=== PATIENT | male | born 1995 ===

== ENCOUNTER 2020-08-05 20:37 | Emergency (ER) | payer SELFPAY ==
[2020-08-05] MEDS ORDERED: SODIUM CHLORIDE 0.9% 1000 ML 1,000 ML IV ONE (20:54)
--- NOTE | 2020-08-05 20:57 | Emergency Department Report ---
HPI - General Time Seen by Provider: 08/05/20 20:39 - HPI HPI: This is a 24-year-old male presents to the emergency department via EMS from home after he had some palpitations and feelings of his heart racing just after finishing working out in his garage. He also says that he was having some short, intermittent, sharp pains in the chest going towards his back. EMS found the patient to be in SVT and gave him 6 mg of adenosine and he converted back to a normal sinus rhythm. He was also given some IV fluid in route. The patient says that this is occurred 1 time previous after he was playing soccer. The patient himself did not take anything for his symptoms prior to presentation. He denies any past medical history. He denies any tobacco or illicit drug use. The patient denies using any preworkout supplementation, caffeinated products. At this time the patient feels that he is back at his baseline status and has no complaints. At the time of his symptoms there were no known aggravating or alleviating factors. No recent travel or sick contacts at home. He denies any fever, abdominal pain, lower extremity swelling, nausea, vomiting or diaphoresis. ED Review of Systems ROS: Stated complaint: SVT Other details as noted in HPI Comment: All other systems reviewed and negative Constitutional: denies: chills, fever Eyes: denies: eye pain, vision change ENT: denies: ear pain, throat pain Respiratory: shortness of breath. denies: cough Cardiovascular: chest pain, palpitations Gastrointestinal: denies: abdominal pain, vomiting Genitourinary: denies: dysuria, discharge Musculoskeletal: back pain. denies: arthralgia Skin: denies: rash, lesions Neurological: denies: headache, weakness Physical Exam - Physical Exam Physical Exam: GENERAL: The patient is well-developed well-nourished. HENT: Normocephalic. Atraumatic. Patient has moist mucous membranes. EYES: Extraocular motions are intact. NECK: Supple. Trachea is midline. CHEST/LUNGS: Clear to auscultation. There is no respiratory distress noted. HEART/CARDIOVASCULAR: Regular. There is no tachycardia. There is no murmur. ABDOMEN: Abdomen is soft, nontender. Patient has normal bowel sounds. SKIN: Skin is warm and dry. NEURO: The patient is awake, alert, and oriented. The patient is cooperative. The patient has no focal neurologic deficits. Normal speech. MUSCULOSKELETAL: There is no tenderness or deformity. There is no limitation range of motion. ED Medical Decision Making - Lab Data Result diagrams: 08/05/20 21:07 08/05/20 21:07 - EKG Data -: EKG Interpreted by Me EKG shows normal: sinus rhythm, axis, intervals, QRS complexes, ST-T waves (Early repolarization) Rate: normal - EKG Data When compared to previous EKG there are: previous EKG unavailable Interpretation: normal EKG - Radiology Data Radiology results: image reviewed interpreted by me: Chest x-ray does not show any acute process. There are no pleural effusions, obvious pneumonia and there is no pneumothorax. No significant cardiomegaly. - Medical Decision Making This patient presents to the emergency department after he was found to have SVT by EMS. The initial chest pain and/or palpitations that the patient experienced has resolved by the time he arrived to the emergency department. His EKG here does not have any morphology consistent with ST elevation ID, ischemia, or dysrhythmia. Chest x-ray does not show any pneumonia, pleural effusions, pneumothorax, focal consolidation, or any other acute process. Patient's labs have been unremarkable including CBC, metabolic panel, negative troponin, negative D-dimer, and a normal thyroid level. His vital signs have been reassuring throughout his ED course including being afebrile. The patient was reevaluated multiple times over multiple hours and there has been no return to SVT or any tachycardia or arrhythmia. For all these reasons patient appears safe for discharge home at this time. His contact information has been sent over to the [facility], and someone from their office should be contacting him shortly for close outpatient follow-up. Just in case he has been also given a referral for one of their coffee farmer to make his own appointment. He will return to the ER with any worsening of his symptoms or wi th any acute distress. Critical Care Time: No Critical care attestation.: If time is entered above; I have spent that time in minutes in the direct care of this critically ill patient, excluding procedure time. ED Disposition Clinical Impression: SVT (supraventricular tachycardia), Palpitations Disposition: - TO HOME OR SELFCARE Is pt being admited?: No Condition: Stable Instructions: Supraventricular Tachycardia (ED), Palpitations (ED) Additional Instructions: Please follow-up with a primary care physician in the next few days. I have sent your contact information over to [facility], and someone from their office should be contacting you shortly for close outpatient follow-up regarding your episode of SVT and palpitations. Just in case they fail to contact you, I am also giving you a referral for one of their cardiologists, Dr. Johnson, so you can call to make an appointment. Please avoid any energy drinks or caffeinated products. I recommend that you hold off on any further strenuous exercise, work, or exertion, until follow-up with the coffee farmer. Return to the emergency department with any worsening of your symptoms, new or concerning symptoms not addressed during this current emergency department visit, or with any acute distress. Referrals: ZEENAT JOHNSON MD [Staff Physician] - 2-3 Days Time of Disposition: 22:37
[2020-08-05 21:20] LABS: Basophils % (Auto) 0.2 % (0.0-1.8); Eosinophils % (Auto) 0.1 % (0.0-4.3); Hematocrit 42.6 % (35.5-45.6); Hemoglobin 14.5 gm/dl (11.8-15.2); Lymphocytes # (Auto) 1.2 K/mm3 (1.2-5.4); Lymphocytes % (Auto) 13.2 % (13.4-35.0); Mean Corpuscular HGB Conc 34 % (32-34); Mean Corpuscular Volume 94 fl (84-94); Monocytes # (Auto) 0.3 K/mm3 (0.0-0.8); Monocytes % (Auto) 3.9 % (0.0-7.3); Platelet Count 163 K/mm3 (140-440); Red Blood Count 4.53 M/mm3 (3.65-5.03); Red Cell Distribution Width 13.5 % (13.2-15.2)
[2020-08-05 21:38] LABS: BUN/Creatinine Ratio 23; Blood Urea Nitrogen 18 mg/dL (9-20); Calcium 8.9 mg/dL (8.4-10.2); Hemolysis Index 26
--- NOTE | 2020-08-05 21:39 | XRay Report ---
CHEST 1 VIEW INDICATION: Palpitations COMPARISON: None FINDINGS: SUPPORT DEVICES: None. HEART / MEDIASTINUM: No significant abnormality. LUNGS / PLEURA: No significant pulmonary or pleural abnormality. No pneumothorax. ADDITIONAL FINDINGS: IMPRESSION: 1. No acute cardiopulmonary disease Signer Name: Milton Adamson MD Signed: 08/05/2020 9:35 PM Workstation Name: [id number]
[2020-08-05 23:11] VITALS: BP 108/71
== END 2020-08-05 23:05 | disposition home or self-care (01) ==
LOC: ED 20:37
DX: I47.1 Supraventricular tachycardia (principal); R00.2 Palpitations
CPT/HCPCS: 36415; 71045; 80048; 84443; 84484; 85025; 85379; 93005; 96360; 96361; 99284; J7030